=== PATIENT | female | born 1965 | race Caucasian/White ===

== ENCOUNTER 2024-03-10 12:00 | Emergency (ER) | payer OTHER ==
[2024-03-10 12:14] VITALS: TEMP 99.3; BMI 22.8
[2024-03-10 13:22] LABS: BASO % 0.6 % (0-2.0); EOS % 1.1 % (0-4.5); HEMATOCRIT 39.9 % (32.4-45.2); HEMOGLOBIN 13.3 GM/dL (10.7-15.3); LYMPH % 28.2 % (8-40); MCH 31.2 pg (25.7-33.7); MCHC 33.4 g/dl (32.0-36.0); MEAN CELL VOLUME 93.3 fl (80-96); MONO % 5.5 % (3.8-10.2); NEUT % 64.6 % (42.8-82.8); PLATELET COUNT 354 10^3/uL (134-434); RBC 4.28 M/mm3 (3.60-5.2); RDW 13.7 % (11.6-15.6); WHITE BLOOD COUNT 7.3 K/mm3 (4.0-10.0)
[2024-03-10 13:47] LABS: CALCIUM 9.3 mg/dL (8.5-10.1)
[2024-03-10 13:48] LABS: ALBUMIN 3.7 g/dl (3.4-5.0); BLOOD UREA NITROGEN 10.4 mg/dL (7-18)
[2024-03-10 13:51] LABS: CREATININE 0.9 mg/dL (0.55-1.3)
[2024-03-10 13:52] LABS: BILIRUBIN,TOTAL 0.5 mg/dL (0.2-1)
[2024-03-10 15:16] VITALS: BP 131/68; PULSE 85; RESP 20
[2024-03-10] MEDS ORDERED: ALPRAZolam 0.25 MG TABLET ONE (15:18)
[2024-03-10] MEDS: ALPRAZolam 1 MG TABLET PO PRN (15:26)
== END 2024-03-10 15:26 | disposition home or self-care (01) ==
LOC: JER 12:00
DX: F32.A Depression, unspecified (principal)
CPT/HCPCS: 36415; 80053; 84443; 85025; 93005; 93010; 99283-25